=== PATIENT | male | born 1960 | race Caucasian/White ===

== ENCOUNTER → 2016-12-03 | Day surgery (SDC) | payer MEDICAID ==
[~2016-12-03] MED LIST: LIDO/EPI 1% **for epidural** 30 ML SDV ONE; MIDAZOLAM 2 MG/2 ML VIAL ONE; NS 1,000 ML IV SCH; ONDANSETRON 4 MG/2 ML VIAL IVP ONE; SODIUM TETRADECYL SULFATE 60 MG/2 ML VIAL IV ONE; fentaNYL 100 MCG/2 ML INJ ONE
--- NOTE | 2016-12-03 17:58 | IR ---
Laser Ablation, Posterior Right Calf [employer] Multivessel Sclerotherapy Indication: Continued healing of extensive right lower cavity venous stasis cellulitis and dermatiti s. The patient returns today, now that his ulcers have healed, for additional evaluation and treatme nt. Previous ultrasound shows dominant perforators that need attention. Informed Consent: Obtained from the patient. Risks and benefits were discussed. Cross Cutting Measure: Patient's current list of medications including all known prescriptions, over -the-counters, herbals, and vitamin/mineral/dietary supplements are reviewed. Medications' name, dos age, frequency, and route of administration are confirmed. Patient is a non-smoker. Prophylactic Antibiotic: Cefazolin was not ordered and administered for antimicrobial prophylaxis be cause it was not medically necessary. VTE Prophylaxis: There is not an order for VTE prophylaxis to be given within 24 hours of the proced ure end time. VTE prophylaxis was not given because it was not medically necessary. Technique: Patient is placed in supine position. A "timeout" procedure was performed to identify th e correct patient and the correct procedure. 1% Xylocaine was used for local anesthetic. All elemen ts of maximal sterile barrier technique, including cap, mask, sterile gown, sterile gloves, large essie rile sheet, hand hygiene, and 2% chlorhexidine for cutaneous antisepsis, followed. Ultrasound evaluation of potential access site was performed. After successfully identifying a patent vessel, ultrasound guidance was used to puncture the vessel. A permanent recording was created for the patient's record. When ultrasound is used, sterile gel and probe covers are used. First, under ultrasound guidance, Micropuncture access to a large posterior calf abstractor was obtai benjamin, followed by placement of a [place] wire and Micropuncture sheath. Laser fiber was then advanced th rough the sheath, and the sheath was pulled back. Tumescent anesthesia is delivered along the course of the abstractor, and ablation was performed by s lowly pulling the fiber back by hand. Multivessel sclerotherapy was then performed in the proximal thigh, posteromedial thigh, calf, and an kle. These sclerotherapy injections successfully treated another dominant abstractor that is at the distal medial calf. This was a long abstractor. The great saphenous vein has been previously ablated. The lesser saphenous vein is now completely ab lated and absorbed, from treatment in 2016. Vein of Giacomini is mostly absorbed. Medication: 150 mcg fentanyl, 3 mg Versed, [id number]. Impression: 1. Laser ablation of a dominant posterior calf abstractor. 2. Multivessel sclerotherapy, which in turn also treated a medial distal calf abstractor. 3. Multivessel sclerotherapy also to the posteromedial thigh. 4. Closed lesser saphenous system, which is mostly resorbed. Recommendation: 1. Continue application of compression dressing and a stocking. 2. The patient should discontinue to see improvement. Repeat ultrasound interrogation will be neede d if symptoms progress. 3. Follow up with IR in one month.
--- NOTE | 2016-12-03 17:58 | IR ---
Laser Ablation, Posterior Right Calf [employer] Multivessel Sclerotherapy Indication: Continued healing of extensive right lower cavity venous stasis cellulitis and dermatiti s. The patient returns today, now that his ulcers have healed, for additional evaluation and treatme nt. Previous ultrasound shows dominant perforators that need attention. Informed Consent: Obtained from the patient. Risks and benefits were discussed. Cross Cutting Measure: Patient's current list of medications including all known prescriptions, over -the-counters, herbals, and vitamin/mineral/dietary supplements are reviewed. Medications' name, dos age, frequency, and route of administration are confirmed. Patient is a non-smoker. Prophylactic Antibiotic: Cefazolin was not ordered and administered for antimicrobial prophylaxis be cause it was not medically necessary. VTE Prophylaxis: There is not an order for VTE prophylaxis to be given within 24 hours of the proced ure end time. VTE prophylaxis was not given because it was not medically necessary. Technique: Patient is placed in supine position. A "timeout" procedure was performed to identify th e correct patient and the correct procedure. 1% Xylocaine was used for local anesthetic. All elemen ts of maximal sterile barrier technique, including cap, mask, sterile gown, sterile gloves, large essie rile sheet, hand hygiene, and 2% chlorhexidine for cutaneous antisepsis, followed. Ultrasound evaluation of potential access site was performed. After successfully identifying a patent vessel, ultrasound guidance was used to puncture the vessel. A permanent recording was created for the patient's record. When ultrasound is used, sterile gel and probe covers are used. First, under ultrasound guidance, Micropuncture access to a large posterior calf traveling operator was obtai benjamin, followed by placement of a [place] wire and Micropuncture sheath. Laser fiber was then advanced th rough the sheath, and the sheath was pulled back. Tumescent anesthesia is delivered along the course of the traveling operator, and ablation was performed by s lowly pulling the fiber back by hand. Multivessel sclerotherapy was then performed in the proximal thigh, posteromedial thigh, calf, and an kle. These sclerotherapy injections successfully treated another dominant traveling operator that is at the distal medial calf. This was a long traveling operator. The great saphenous vein has been previously ablated. The lesser saphenous vein is now completely ab lated and absorbed, from treatment in 2016. Vein of Giacomini is mostly absorbed. Medication: 150 mcg fentanyl, 3 mg Versed, [id number]. Impression: 1. Laser ablation of a dominant posterior calf traveling operator. 2. Multivessel sclerotherapy, which in turn also treated a medial distal calf traveling operator. 3. Multivessel sclerotherapy also to the posteromedial thigh. 4. Closed lesser saphenous system, which is mostly resorbed. Recommendation: 1. Continue application of compression dressing and a stocking. 2. The patient should discontinue to see improvement. Repeat ultrasound interrogation will be neede d if symptoms progress. 3. Follow up with IR in one month.
== END | disposition home or self-care (01) ==
LOC: FIMAGING 07:32
PROVIDERS: ATTEND Radiology Diagnostic Radiology
DX: I83.891 Varicose veins of right lower extremity with other complications (principal); Z88.2 Allergy status to sulfonamides
CPT/HCPCS: J2250; J3010